=== PATIENT | female | born 1960 | race Caucasian/White ===

== ENCOUNTER → 2020-11-19 | Outpatient (CLI) | payer MEDICARE, OTHER | LOC: US 10:31 → ECHO 12:00 | DX: R07.9 Chest pain, unspecified (principal); R55 Syncope and collapse; I65.21 Occlusion and stenosis of right carotid artery | CPT/HCPCS: ECHO; 78452; 93017; 93306; 93880; A9502; J2785 ==

== ENCOUNTER → 2021-05-06 | Outpatient (CLI) | payer MEDICARE, OTHER | LOC: CT 15:00 | DX: R22.1 Localized swelling, mass and lump, neck (principal) | CPT/HCPCS: 36415; 70491; 82565; 84520; Q9967 ==